=== PATIENT | male | born 1990 | race Caucasian/White ===

== ENCOUNTER → 2020-02-02 | Outpatient (CLI) | payer OTHER ==
--- NOTE | 2020-02-02 16:36 | XR ---
EXAMINATION TYPE: XR sacroiliac joint comp BILAT DATE OF EXAM: 02/02/2020 COMPARISON: NONE HISTORY: Low back and sacroiliac joint pain. Weightlifting injury. TECHNIQUE: 2 views of the sacroiliac joints. FINDINGS: Sacroiliac joints appear symmetric and felt within normal limits. No suspicious spurring, s clerosis, or narrowing is noted bilaterally. Overlying soft tissue is unremarkable. IMPRESSION: As above.
== END | disposition home or self-care (01) ==
LOC: RADXRMAIN 16:15
PROVIDERS: ATTEND Internal Medicine
DX: M54.5 Low back pain (principal)
CPT/HCPCS: 72202

== ENCOUNTER → 2020-05-02 | Outpatient (CLI) | payer OTHER ==
--- NOTE | 2020-05-02 17:26 | MR ---
EXAMINATION TYPE: MR lumbar spine wo/w con DATE OF EXAM: 05/02/2020 COMPARISON: None HISTORY: 29-year-old male Low back pain Technique: Multiplanar, multisequence images of the lumbar spine were obtained before and after admin istration of 9 mL intravenous Gadavist gadolinium contrast. FINDINGS: Vertebral body heights are preserved and alignment is maintained. There is some straightening of the normal lumbar lordosis. Mild degenerative disc disease with disc desiccation and mild disc height loss particularly at L2-L3, L4-L5, and L5-S1. Posterior annular fissure and bulging disc at L5-S1. Conus medullaris is normal. Bone marrow signal compatible with red marrow and patient's young age. No abnormal enhancement within the spinal canal. At T12-L2 levels, no spinal canal or foraminal stenosis. At L2-L3, minimal bulging disc compressing into the ventral thecal sac without significant canal or f oraminal stenosis. At L3-L4, no canal or foraminal stenosis. At L4-L5, mild diffuse disc bulge. This results in minimal inferior neural foraminal narrowing on the right. No spinal canal stenosis. At L5-S1, diffuse disc bulge. Superimposed small central disc protrusion with posterior annular fissu re. No spinal canal stenosis. Minimal inferior foraminal narrowing on both sides, left greater than r ight. No prevertebral or paravertebral soft tissue abnormality. IMPRESSION: 1. Mild degenerative disc disease L2-L3, L4-L5, and L5-S1 with mild disc desiccation and disc bulging . 2. Additional enhancing posterior annular fissure at L5-S1. No large focal disc herniation or signifi cant spinal canal stenosis. 3. Minimal inferior foraminal narrowing on both sides at L5-S1, left greater than right. Also minimal inferior foraminal narrowing on the right at L4-L5. No significant foraminal compromise.
== END | disposition home or self-care (01) ==
LOC: RADMRIMAIN 14:08
PROVIDERS: ATTEND Internal Medicine
DX: M51.26 Other intervertebral disc displacement, lumbar region (principal); M51.36 Other intervertebral disc degeneration, lumbar region; M51.37 Other intervertebral disc degeneration, lumbosacral region
CPT/HCPCS: 72158; A9585